=== PATIENT | female | born 1940 | race Caucasian/White ===

== ENCOUNTER 2019-10-13 15:26 | Emergency (ER) | payer MEDICARE, SELFPAY ==
[2019-10-13 15:27] VITALS: BP 156/75; PULSE 70; RESP 18; TEMP 36.8; O2SAT 97; BMI 22.8
--- NOTE | 2019-10-13 15:46 | EKG12_ITS ---
Test Reason : SYNCOPE Blood Pressure : / mmHG Vent. Rate : 067 BPM Atrial Rate : 067 BPM P-R Int : 164 ms QRS Dur : 074 ms QT Int : 444 ms P-R-T Axes : 064 025 024 degrees QTc Int : 469 ms Normal sinus rhythm Normal ECG Confirmed by LIZETH VIRAMONTES, CANDY ([id number]), sports editor SUJEY ERIC ([id number]) on 10/15/2019 1:49:03 PM Referred By: Confirmed By:CANDY STANLEY MD
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
[2019-10-13 17:54] VITALS: BP 156/86; PULSE 77; RESP 16; O2SAT 97
== END 2019-10-13 17:55 | disposition home or self-care (01) ==
PROVIDERS: Emergency Provider Emergency Medicine
DX: S20.212A Contusion of left front wall of thorax, initial encounter (principal); S30.1XXA Contusion of abdominal wall, initial encounter; S81.811A Laceration without foreign body, right lower leg, initial encounter; V43.62XA Car passenger injured in collision with other type car in traffic accident, initial encounter; Y93.9 Activity, unspecified; Y92.9 Unspecified place or not applicable; F03.90 Unspecified dementia, unspecified severity, without behavioral disturbance, psychotic disturbance, mood disturbance, and anxiety; I10 Essential (primary) hypertension; E03.9 Hypothyroidism, unspecified; I48.91 Unspecified atrial fibrillation; K21.9 Gastro-esophageal reflux disease without esophagitis; M54.5 Low back pain; G89.29 Other chronic pain; Z79.01 Long term (current) use of anticoagulants; Z79.899 Other long term (current) drug therapy
CPT/HCPCS: 70450; 71045; 72125; 73590; 74176; 93005; 99285; J7030; A4216